=== PATIENT | male | born 1995 ===

== ENCOUNTER 2022-03-18 12:48 | Emergency (ER) | payer SELFPAY ==
[2022-03-18 13:04] VITALS: BP 143/65
== END 2022-03-18 13:40 | disposition left against medical advice (07) ==
LOC: ED 12:48
DX: S61.219A Laceration without foreign body of unspecified finger without damage to nail, initial encounter (principal); Z53.21 Procedure and treatment not carried out due to patient leaving prior to being seen by health care provider; X58.XXXA Exposure to other specified factors, initial encounter; Y93.89 Activity, other specified; Y92.89 Other specified places as the place of occurrence of the external cause; Y99.8 Other external cause status